=== PATIENT | male | born 1935 | race Caucasian/White ===

== ENCOUNTER 2024-07-21 10:40 | Emergency (ER) | payer OTHER ==
[2024-07-21 10:56] VITALS: BP 179/69; PULSE 57; RESP 16; TEMP 97.9; BMI 27.2
[2024-07-21 11:44] LABS: COCAINE, UR NEGATIVE (NEGATIVE); METHADONE, UR NEGATIVE (NEGATIVE); OPIATES, URI NEGATIVE (NEGATIVE); PHENCYCLIDINE,URINE NEGATIVE (NEGATIVE); URINE AMPHETAMINES NEGATIVE (NEGATIVE); URINE BARBITURATES NEGATIVE (NEGATIVE); URINE BENZODIAZEPINES NEGATIVE (NEGATIVE)
== END 2024-07-21 12:20 | disposition home or self-care (01) ==
LOC: JERFT 10:40
DX: Z02.89 Encounter for other administrative examinations (principal)
CPT/HCPCS: 80307; 99283-25

== ENCOUNTER 2024-07-27 12:58 | Emergency (ER) | payer OTHER ==
[2024-07-27 13:13] VITALS: BP 176/73; PULSE 65; RESP 18; TEMP 97.9; BMI 27.2
== END 2024-07-27 14:12 | disposition home or self-care (01) ==
LOC: JERFT 12:58
DX: Z76.0 Encounter for issue of repeat prescription (principal)
CPT/HCPCS: 99281-25